=== PATIENT | female | born 1975 | race Caucasian/White ===

== ENCOUNTER 2021-02-28 06:48 | Day surgery (SDC) | payer OTHER ==
[2021-02-27 12:01] LABS: COVID AG,FIA SOURCE NASOPHARYNGEAL
[~2021-02-28] VITALS: Ht 157.5 cm; Wt 63.6 kg
[~2021-02-28 06:48] MED LIST: ALBUTEROL SULFATE 2.5 MG/0.5 ML NEB SOLUTION NEB ONE; BENZOCAINE 20% 50 MCG/SPRAY 57 GM ONE; LIDOCAINE 2% 30 ML JELLY ONE; LIDOCAINE 4% 50 ML SOLUTION ONE; SODIUM CHLORIDE 0.9% 1,000 ML IV ONE
[2021-02-28] MEDS ORDERED: SODIUM CHLORIDE 0.9% 1,000 ML ONE (07:25)
[2021-02-28] MEDS ORDERED: FAMO40TA7 PO (07:38)
[2021-02-28] MEDS ORDERED: TERB250 PO (07:38)
[2021-02-28] MEDS ORDERED: CHOL500043 PO (07:38)
[2021-02-28] MEDS ORDERED: MONT10TA32 PO (07:38)
[2021-02-28] MEDS ORDERED: FentaNYL CITRATE PF 100 MCG/2 ML VIAL ONE (08:01)
[2021-02-28] MEDS ORDERED: MIDAZOLAM HCL 2 MG/2 ML VIAL ONE (08:01)
[2021-02-28] MEDS ORDERED: MethylPREDNISolone SOD SUCC 125 MG/2 ML VIAL IVP ONE (09:30)
[2021-02-28] MEDS ORDERED: MethylPREDNISolone SOD SUCC 125 MG/2 ML VIAL ONE (10:02)
[2021-02-28] MEDS ORDERED: OXYGEN THERAPY IH SCH (20:00)
== END 2021-02-28 10:57 | disposition home or self-care (01) ==
LOC: SURGERY 06:48
PROVIDERS: ATTEND Internal Medicine Critical Care Medicine
DX: J38.4 Edema of larynx (principal); B37.0 Candidal stomatitis; Z98.890 Other specified postprocedural states
CPT/HCPCS: 31623; 31624; 71045; 84703; 87015; 87070; 87101; 87205; 87206; 87220; 87426; 88108; 88184; 88185; 88312; C9803; J2250; J2930; J3010; J7030